=== PATIENT | female | born 1995 | race Caucasian/White ===

== ENCOUNTER 2016-11-27 22:15 | Emergency (ER) | payer OTHER ==
[2016-11-27 22:33] VITALS: RESP 16; TEMP 98.6
[2016-11-27] MEDS ORDERED: HYOSCYAMINE SULFATE 0.125 MG TAB PO ONE (22:48)
[2016-11-27] MEDS ORDERED: NS 1,000 ML IV ONE (22:49)
[2016-11-27] MEDS ORDERED: MAG HYDROX/AL HYDROX/SIMETH 30 ML UDCUP PO ONE (22:49)
--- NOTE | 2016-11-27 22:53 | EDPHY ---
H & P Stated Complaint: Abdo pain, back pain when walking from 1400 hours today. Source: Patient Exam Limitations: No limitations - Personal History LMP (Females 10-55): 15-21 Days Ago Current Tetanus/Diphtheria Vaccine: Unsure Current Tetanus Diphtheria and Acellular Pertussis (TDAP): Unsure - Medical/Surgical History Hx Asthma: No Hx Chronic Respiratory Disease: No Hx Diabetes: No Hx Cardiac Disease: No Hx Renal Disease: No Hx Cirrhosis: No Hx Alcoholism: No Hx HIV/AIDS: No Hx Splenectomy or Spleen Trauma: No Other PMH: Familial high cholesterol. - Family History Significant Family History: No pertinent family hx - Social History Smoking Status: Never smoked Alcohol Use: None Drug Use: None Time Seen by Provider: 11/27/16 22:38 HPI/ROS: At 2:00 p.m. 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 She reports that radiates to the middle of her back. Peak intensity 7/10. There times and nearly resolved however. She notes worsening with walking and movement but no other exacerbating factors. She has never had this symptom before. She has no other associated symptoms. She has not taken any medications for her discomfort. ROS: No fevers or chills. No fatigue. HEENT: No URI symptoms or other complaints. Pulmonary: No cough for shortness of breath.No pleuritic pain. Cardiovascular: No heart palpitations or chest pain. No lower extremity swelling or calf pain. GI: No nausea or vomiting. She reports normal diet today. No change when she eats food. Normal bowel movements with no diarrhea or constipation. No dark tarry stools. : No urinary symptoms. Last menstrual period was normal timing. No vaginal discharge. Musculoskeletal: No new exercises or injuries recently. Integumentary: No skin rash. 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 Eyes: Pupils equal and round no pallor or injection. ENT, Mouth: Mucous membranes moist. Respiratory: There are no retractions, lungs are clear to auscultation. Cardiovascular: Regular rate and rhythm. Gastrointestinal: Hyperactive bowel sounds, mild epigastric tenderness with no guarding or rebound. No organomegaly. No lower belly tenderness. Back: Nontender. No CVA tenderness Neurological: GCS 15 with no focal sensory or motor deficits Skin: Warm and dry, no rashes. Musculoskeletal: Neck is supple nontender. Extremities are symmetrical, full range of motion. Psychiatric: mood and affect are normal DIFFERENTIAL DIAGNOSIS: After history and physical exam differential diagnosis was considered for food intolerance, viral gastroenteritis, gastritis, cholecystitis, pancreatitis, pyelonephritis, (David Salgado) Constitutional: Initial Vital Signs Temperature (C) 98.6 F 11/27/16 22:30 Heart Rate 74 11/27/16 22:30 Respiratory Rate 16 11/27/16 22:30 Blood Pressure 143/97 H 11/27/16 22:30 O2 Sat (%) 97 11/27/16 22:30 O2 Delivery Mode Room Air Allergies/Adverse Reactions: claritan Allergy (Intermediate, Uncoded 11/27/16 22:33) Vomiting Home Medications: Medication Instructions Recorded Lipitor 10 mg (RX) 04/21/13 Zetia 11/27/16 Medical Decision Making ED Course/Re-evaluation: IV is ordered, labs ordered, urinalysis and test ordered GI cocktail ordered. Discussion: Given hyperactive bowel sounds and minimal tenderness, I think that viral illness or food intolerance is likely but she warrants further workup to rule out other potential diagnoses Discussion at 11:00 p.m. I discussed this case with the oncoming doctor-Dr. Jane who will follow up with results and disposition. (David Salgado) felt in was signed out to me by the off going provider, Dr. David Salgado. On my exam the patient was feeling much better. Her CBC, comprehensive metabolic panel, lipase, urinalysis and urine test were all unremarkable. The patient will watch her diet to see if the fatty foods worsen the symptoms. She was advised that if the pain returns she may need an ultrasound, possibly a HIDA scan, and possibly an upper endoscopy or other studies as clinically indicated. She will follow up with her PCP PRN or return to the ED sooner if worse. (Gisel Jane) - Data Points Laboratory Results: Laboratory Results 11/27/16 22:55 11/27/16 22:55 06/21/17 06/21/17 06/21/17 22:55 22:55 22:55 WBC 7.82 10^3/uL 10^3/uL (3.80-9.50) RBC 4.96 10^6/uL 10^6/uL (4.18-5.33) Hgb 15.1 g/dL g/dL (12.6-16.3) Hct 42.4 % % (38.0-47.0) MCV 85.5 fL fL (81.5-99.8) MCH 30.4 pg pg (27.9-34.1) MCHC 35.6 g/dL g/dL (32.4-36.7) RDW 11.9 % % (11.5-15.2) Plt Count 293 10^3/uL 10^3/uL (150-400) MPV 9.9 fL fL (8.7-11.7) Neut % (Auto) 41.5 % % (39.3-74.2) Lymph % (Auto) 45.9 % H % (15.0-45.0) [place] % (Auto) 5.1 % % (4.5-13.0) Eos % (Auto) 6.8 % % (0.6-7.6) Baso % (Auto) 0.6 % % (0.3-1.7) Nucleat RBC Rel Count 0.0 % % (0.0-0.2) Absolute Neuts (auto) 3.24 10^3/uL 10^3/uL (1.70-6.50) Absolute Lymphs (auto) 3.59 10^3/uL H 10^3/uL (1.00-3.00) Absolute Monos (auto) 0.40 10^3/uL 10^3/uL (0.30-0.80) Absolute Eos (auto) 0.53 10^3/uL H 10^3/uL (0.03-0.40) Absolute Basos (auto) 0.05 10^3/uL 10^3/uL (0.02-0.10) Absolute Nucleated RBC 0.00 10^3/uL 10^3/uL (0-0.01) Immature Gran % 0.1 % % (0.0-1.1) Immature Gran # 0.01 10^3/uL 10^3/uL (0.00-0.10) Sodium 141 mEq/L mEq/L (134-144) Potassium 3.9 mEq/L mEq/L (3.5-5.2) Chloride 102 mEq/L mEq/L (97-110) Carbon Dioxide 24 mEq/l mEq/l (22-31) Anion Gap 15 mEq/L mEq/L (8-16) BUN 11 mg/dL mg/dL (7-23) Creatinine 0.8 mg/dL mg/dL (0.6-1.0) Estimated GFR > 60 Glucose 89 mg/dL mg/dL (70-100) Calcium 9.3 mg/dL mg/dL (8.5-10.4) Total Bilirubin 0.3 mg/dL mg/dL (0.1-1.4) AST 19 IU/L IU/L (14-46) ALT 19 IU/L IU/L (9-52) Alkaline Phosphatase 60 IU/L IU/L (38-126) Total Protein 6.7 g/dL g/dL (6.3-8.2) Albumin 3.9 g/dL g/dL (3.5-5.0) Lipase 161.0 IU/L IU/L (23-300) Urine Color YELLOW Urine Appearance CLEAR Urine pH 6.0 (5.0-7.5) Ur Specific Century 1.010 (1.002-1.030) Urine Protein NEGATIVE (NEGATIVE) Urine Ketones NEGATIVE (NEGATIVE) Urine Blood NEGATIVE (NEGATIVE) Urine Nitrate NEGATIVE (NEGATIVE) Urine Bilirubin NEGATIVE (NEGATIVE) Urine Urobilinogen 0.2 EU EU (0.2-1.0) Ur Leukocyte Esterase NEGATIVE (NEGATIVE) Urine Glucose NEGATIVE (NEGATIVE) Urine Test 11/27/16 22:55 WBC RBC Hgb Hct MCV MCH MCHC RDW Plt Count MPV Neut % (Auto) Lymph % (Auto) [place] % (Auto) Eos % (Auto) Baso % (Auto) Nucleat RBC Rel Count Absolute Neuts (auto) Absolute Lymphs (auto) Absolute Monos (auto) Absolute Eos (auto) Absolute Basos (auto) Absolute Nucleated RBC Immature Gran % Immature Gran # Sodium Potassium Chloride Carbon Dioxide Anion Gap BUN Creatinine Estimated GFR Glucose Calcium Total Bilirubin AST ALT Alkaline Phosphatase Total Protein Albumin Lipase Urine Color Urine Appearance Urine pH Ur Specific Century Urine Protein Urine Ketones Urine Blood Urine Nitrate Urine Bilirubin Urine Urobilinogen Ur Leukocyte Esterase Urine Glucose Urine Test NEGATIVE Medications Given: Discontinued Medications Al Hydroxide/Mg Hydroxide (Maalox Susp) 30 ml PO ONCE ONE Stop: 11/27/16 22:50 Last Admin: 11/27/16 23:00 Dose: 30 ml Hyoscyamine Sulfate (Levsin, Hyomax-Sl) 0.125 mg PO EDNOW ONE Stop: 11/27/16 22:49 Last Admin: 11/27/16 23:00 Dose: 0.125 mg Sodium Chloride (Ns) 1,000 mls @ 0 mls/hr IV ONCE ONE; Wide Open PRN Reason: Protocol Stop: 11/27/16 22:50 Last Admin: 11/27/16 23:04 Dose: 1,000 mls Departure - Departure Disposition: Home, Routine, Self-Care Clinical Impression: Acute epigastric pain Condition: Good Instructions: Epigastric Pain (ED), Biliary Colic (ED) Additional Instructions: Return to the ED if pain returns as discussed. Referrals: NONE *PRIMARY CARE P,. [Primary Care Provider] - Follow Up Only If Needed
[2016-11-27 23:06] LABS: % IMMATURE GRANULYOCYTES 0.1 % (0.0-1.1); ABSOLUTE IMMATURE GRANULOCYTES 0.01 10^3/uL (0.00-0.10); ADD DIFF? NO; ADD MORPH? NO; ADD SCAN? NO; ATYPICAL LYMPHOCYTE FLAG 10 (0-99); FRAGMENT RBC FLAG 0 (0-99); HEMATOCRIT 42.4 % (38.0-47.0); HEMOGLOBIN 15.1 g/dL (12.6-16.3); LEFT SHIFT FLG 0 (0-99); LIPEMIA HEMOLYSIS FLAG 90 (0-99); MEAN CELL HEMOGLOBIN 30.4 pg (27.9-34.1); MEAN CELL HEMOGLOBIN CONCENTR. 35.6 g/dL (32.4-36.7); MEAN CELL VOLUME 85.5 fL (81.5-99.8); MEAN PLATELET VOLUME 9.9 fL (8.7-11.7); PLATELET CLUMPS FLAG 0 (0-99); PLATELET COUNT 293 10^3/uL (150-400); RED BLOOD CELL COUNT 4.96 10^6/uL (4.18-5.33); RED CELL DISTRIBUTION WIDTH 11.9 % (11.5-15.2)
[2016-11-27 23:09] LABS: COLOR YELLOW; LEUKOCYTE ESTERASE,URINE NEGATIVE (NEGATIVE); NITRITE,URINE NEGATIVE (NEGATIVE)
[2016-11-27 23:46] LABS: ALANINE AMINOTRANSFERASE 19 IU/L (9-52); ALBUMIN 3.9 g/dL (3.5-5.0); ALKALINE PHOSPHATASE 60 IU/L (38-126); ANION GAP 15 mEq/L (8-16); ASPARTATE AMINOTRANSFERASE 19 IU/L (14-46); BILIRUBIN,TOTAL 0.3 mg/dL (0.1-1.4); CALCIUM 9.3 mg/dL (8.5-10.4); CARBON DIOXIDE 24 mEq/l (22-31); CHLORIDE 102 mEq/L (97-110); CREATININE 0.8 mg/dL (0.6-1.0); GLOMERULAR FILTRATION RATE > 60; GLUCOSE 89 mg/dL (70-100); POTASSIUM 3.9 mEq/L (3.5-5.2); SODIUM 141 mEq/L (134-144); TOTAL PROTEIN 6.7 g/dL (6.3-8.2)
[2016-11-28 00:21] VITALS: BP 135/82; PULSE 69; O2SAT 96
== END 2016-11-28 00:20 | disposition home or self-care (01) ==
LOC: CED 22:15
DX: R10.13 Epigastric pain (principal)
CPT/HCPCS: 80053-PO; 81003-PO; 81025-PO; 83690-PO; 85025-PO